=== PATIENT | female | born 1980 | race Caucasian/White ===

== ENCOUNTER 2016-10-10 08:38 | Emergency (ER) | payer MEDICARE, OTHER ==
[2016-10-10 09:26] LABS: HEMOGLOBIN 12.1 gm/dl (12.3-15.3); RED BLOOD COUNT 3.93 M/UL (4.00-5.10); WHITE BLOOD COUNT 7.2 K/UL (4.5-11.0)
[2016-10-10 09:41] LABS: BUN/CREATININE RATIO 18 (0-10)
== END 2016-10-10 18:22 | disposition home or self-care (01) ==
LOC: ER1 08:38
PROVIDERS: Emergency Medicine
DX: R07.9 Chest pain, unspecified (principal); E87.6 Hypokalemia; Z90.49 Acquired absence of other specified parts of digestive tract; Z88.2 Allergy status to sulfonamides; Z88.8 Allergy status to other drugs, medicaments and biological substances; Z79.899 Other long term (current) drug therapy
CPT/HCPCS: 36415; 71010; 80053; 81001; 82550; 82553; 83874; 84484; 85025; 85379; 99285

== ENCOUNTER 2016-10-25 20:55 | Emergency (ER) | payer MEDICARE, OTHER | END 2016-10-25 22:04 | disposition left against medical advice (07) | LOC: ER1 20:55 | DX: Z53.21 Procedure and treatment not carried out due to patient leaving prior to being seen by health care provider (principal) ==

== ENCOUNTER 2016-10-27 21:20 | Emergency (ER) | payer MEDICARE, OTHER | END 2016-10-27 23:43 | disposition left against medical advice (07) | LOC: ER1 21:20 | DX: Z53.21 Procedure and treatment not carried out due to patient leaving prior to being seen by health care provider (principal) ==

== ENCOUNTER → 2016-10-31 | Outpatient (CLI) | payer MEDICARE, OTHER | LOC: HEART 5 10:54 | DX: R07.9 Chest pain, unspecified (principal) | CPT/HCPCS: 93306 ==

== ENCOUNTER 2016-11-08 12:27 | Emergency (ER) | payer MEDICARE, OTHER ==
[2016-11-08 14:37] LABS: HEMOGLOBIN 12.8 gm/dl (12.3-15.3); RED BLOOD COUNT 4.13 M/UL (4.00-5.10); WHITE BLOOD COUNT 7.5 K/UL (4.5-11.0)
[2016-11-08 14:55] LABS: BUN/CREATININE RATIO 12 (0-10)
== END 2016-11-08 19:05 | disposition home or self-care (01) ==
LOC: ER1 12:27
PROVIDERS: Student in an Organized Health Care Education/Training Program
DX: R07.9 Chest pain, unspecified (principal); J45.909 Unspecified asthma, uncomplicated; E03.9 Hypothyroidism, unspecified; Z88.1 Allergy status to other antibiotic agents; Z88.2 Allergy status to sulfonamides; Z88.5 Allergy status to narcotic agent; Z88.8 Allergy status to other drugs, medicaments and biological substances; Z90.49 Acquired absence of other specified parts of digestive tract; Z79.899 Other long term (current) drug therapy
CPT/HCPCS: 36415; 71020; 80053; 82550; 82553; 83874; 84484; 84703; 85025; 93005; 99285

== ENCOUNTER → 2017-01-02 | Outpatient (CLI) | payer MEDICARE, OTHER ==
[~2017-01-02] VITALS: Ht 157.5 cm; Wt 104.3 kg
== END ==
LOC: OPSV 09:35
DX: S50.10XA Contusion of unspecified forearm, initial encounter (principal)
CPT/HCPCS: 90471; 90714

== ENCOUNTER 2022-03-01 16:03 | Emergency (ER) | payer MEDICARE, OTHER ==
[~2022-03-01 16:03] MED LIST: AJOVY225 MG/1.5 SQ; ARTIFICIAL TEA1 EACH OP; ASPIR 8181 MG PO; BENTYL 20MG TAB20 MG PO; BENZTROPINE ME0.5 MG PO; BREO ELLIPTA 21 EACH INH; BUSPAR 5MG TABLE5 MG PO; COLACE100 MG PO; CYANOCOBAL1000 MCG/1 INJ; CYCLOBENZAPRINE5 MG PO; DEPAKOTE ER500 MG PO; DEPAKOTE500 MG PO; FLEXERIL 10 MG10 MG PO; FLONASE 0.05% N16 GM; GAVISCON EXTRA355 ML PO; HALDOL 5 MG TAB5 MG PO; HALOPERIDO100 MG/11 IM; IBU600 MG PO; IBUPROFEN600 MG PO; LIPITOR TAB 1010 MG PO; MINIPRESS2 MG PO; MIRALAX17 GM PO; NAPROXEN 250 M250 MG PO; NYAMYC TP; PROAIR HFA8.5 GM INH; PROTONIX40 MG PO; RIZATRIPTAN10 M1 PO; SINGULAIR10 MG PO; SYNTHROID150 MCG PO; ZANTAC150 MG PO; ZONEGRAN100 MG PO; ZYRTEC10 M3 PO
[2022-03-01 17:55] LABS: HEMOGLOBIN 13.1 gm/dl (12.3-15.3); RED BLOOD COUNT 3.94 M/UL (4.00-5.10); WHITE BLOOD COUNT 6.9 K/UL (4.5-11.0)
[2022-03-01 18:27] LABS: BUN/CREATININE RATIO 14 (0-10)
[2022-03-01] MEDS ORDERED: CLEOCIN HCL300 MG PO ×2 (19:36→19:38)
[2022-03-01] MEDS ORDERED: VISTARIL 25 MG25 MG PO (19:38)
== END 2022-03-01 20:15 | disposition home or self-care (01) ==
LOC: ER1 16:03
PROVIDERS: Preventive Medicine Occupational Medicine
DX: L03.116 Cellulitis of left lower limb (principal); I10 Essential (primary) hypertension
CPT/HCPCS: 80053; 85025; 86140; 96361; 96365; 99283

== ENCOUNTER → 2022-03-13 | Outpatient (CLI) | payer MEDICARE, OTHER ==
[~2022-03-13] MED LIST changes: +CLEOCIN HCL300 MG PO; +VISTARIL 25 MG25 MG PO
== END ==
LOC: EXRD 11:08
DX: M79.89 Other specified soft tissue disorders (principal)
CPT/HCPCS: 93971